=== PATIENT | female | born 1985 | race American Indian/Alaskan Native ===

== ENCOUNTER 2017-12-05 00:22 | Inpatient (IN) | payer OTHER, MEDICAID ==
[2017-12-05] MEDS ORDERED: LACTATED RINGERS 1,000 ML ONE (02:17)
[2017-12-05] MEDS ORDERED: STADOL IV PRN (02:24)
[2017-12-05] MEDS ORDERED: BRETHINE IVP PRN (02:24)
[2017-12-05] MEDS ORDERED: PHENERGAN PO PRN ×2 (02:24→03:52)
[2017-12-05] MEDS ORDERED: MINERAL OIL PO PRN (02:24)
[2017-12-05] MEDS ORDERED: ZOFRAN IV PRN ×2 (02:24→03:52)
[2017-12-05] MEDS ORDERED: XYLOCAINE 2% INFILTRATI ONE (02:24)
[2017-12-05] MEDS ORDERED: ePHEDrine SULFATE IV PRN (02:24)
[2017-12-05] MEDS ORDERED: BRETHINE SUB-Q PRN (02:24)
[2017-12-05] MEDS ORDERED: SUBLIMAZE IV PRN (02:24)
--- NOTE | 2017-12-05 02:33 | History and Physical Report ---
History of Present Illness Date of examination: 12/05/17 Date of admission: 12/05/17 01:41 Chief complaint: Labor History of present illness: Pt is a 31yo BF EDC 12/18/17; EGA 38 1/7 weeks presents to L&D complaining of RUC's q 3-4 mins. She received care at [facility] since 5 weeks and course has been remarkable for chronic hypertension and history of PTD, for which she has been co-managed by [facility]. records are available and GBS is Negative. Past History Past Medical History: hypertension Past Surgical History: no surgical history RENAL MEDICINE PHYSICIAN History: chlamydia, fibroids Family/Genetic History: diabetes, heart disease, hypertension, cancer Social history: no significant social history, single - Obstetrical History Expected Date of Delivery: 12/18/17 Actual Gestation: 38 Week(s) 1 Day(s) : 4 Medications and Allergies Allergies Allergy/AdvReac Type Severity Reaction Status Date / Time No Known Drug Allergies Allergy Unknown Verified 12/05/17 02:44 Review of Systems All systems: negative - Physical Exam Breasts: Positive: deferred Cardiovascular: Regular rate Lungs: Positive: Clear to auscultation Abdomen: Positive: normal appearance Genitourinary (Female): Positive: normal external genitalia Uterus: Positive: enlarged Extremities: Positive: normal - Obstetrical FHR: category 1 Uterine Contraction Monitor Mode: External Cervical Dilatation: 6 Cervical Effacement Percentage: 90 station: -2 Uterine Contraction Pattern: Regular Uterine Tone Measurement Phase: Contraction Uterine Contraction Intensity: Moderate Results Result Diagrams: 12/05/17 02:32 All other labs normal. Assessment and Plan - Patient Problems (1) 38 weeks gestation of Onset Date: 12/05/17 Current Visit: Yes Status: Acute Plan to address problem: A: IUP @ 38 1/7 weeks in labor GBS Negative P: Admit to L&D for expectant vaginal delivery (2) Active labor at term Onset Date: 12/05/17 Current Visit: Yes Status: Acute
[2017-12-05 02:52] LABS: Hematocrit 32.8 % (30.3-42.9); Hemoglobin 10.9 gm/dl (10.1-14.3); Mean Corpuscular HGB Conc 33 % (30-34); Mean Corpuscular Hemoglobin 31 pg (28-32); Mean Corpuscular Volume 93 fl (79-97); Red Blood Count 3.52 M/mm3 (3.65-5.03); Red Cell Distribution Width 13.8 % (13.2-15.2)
[2017-12-05 02:57] LABS: Platelet Count 159 K/mm3 (140-440)
[2017-12-05] MEDS ORDERED: PITOCin/NS 30 UNIT/500ML 30 UNITS/500 ML BAG IV SCH ×2 (03:00)
[2017-12-05] MEDS ORDERED: PITOCin/NS 20 UNIT/1000ML DRIP 20 UNITS/1,000 ML BAG IV SCH ×2 (03:00→04:00)
[2017-12-05] MEDS ORDERED: LACTATED RINGERS 1,000 ML IV SCH (03:00)
[2017-12-05] MEDS ORDERED: METHERGINE IM ONE (03:27)
--- NOTE | 2017-12-05 03:51 | Procedure Note ---
OB Delivery Note - Delivery Date of Delivery: 12/05/17 Surgeon: TITI WALL Estimated blood loss: 100cc - Vaginal Delivery presentation: vertex Delivery position: OA Intrapartum events: precipitous labor- <3hr Delivery induction: none Delivery augmentation: rupture of membranes Delivery monitor: external FHT, external uterine Route of delivery: Delivery placenta: spontaneous Delivery cord: 3 umbilical vessels Episiotomy: none Anesthesia: none Delivery comments: delivered OA and placed on Mom's chest for [id number] bonding and delayed cord clamping and cut by Dad - A at 1 minute: 8 at 5 minutes: 9 Gender: Female (3110gms)
[2017-12-05] MEDS ORDERED: TYLENOL PO PRN (03:52)
[2017-12-05] MEDS ORDERED: DULCOLAX PR PRN (03:52)
[2017-12-05] MEDS ORDERED: LANSINOH TP PRN (03:52)
[2017-12-05] MEDS ORDERED: MILK OF MAGNESIA PO PRN (03:52)
[2017-12-05] MEDS ORDERED: PHENERGAN PR PRN (03:52)
[2017-12-05] MEDS ORDERED: BENADRYL PO PRN (03:52)
[2017-12-05] MEDS ORDERED: TUCKS PAD TP PRN (03:52)
[2017-12-05] MEDS ORDERED: SODIUM CHLORIDE FLUSH SYRINGE 10 ML IV NR (04:00)
[2017-12-05] MEDS: MOTRIN PO SCH ×3 (06:28→23:15)
[2017-12-05] MEDS: PRENATAL VITAMIN PO SCH (10:43)
[2017-12-05] MEDS: FEOSOL PO SCH ×2 (10:43→20:59)
[2017-12-05] MEDS: NORCO 5/325 PO PRN (10:44)
[2017-12-05] MEDS: COLACE PO SCH ×2 (10:49→20:59)
[2017-12-05 16:28] LABS: Hemoglobin 10.6 gm/dl (10.1-14.3)
[2017-12-06] MEDS: MOTRIN PO SCH ×3 (05:17→18:33)
[2017-12-06] MEDS ORDERED: BOOSTRIX IM ONE (06:00)
[2017-12-06] MEDS ORDERED: M-M-R II VACCINE SUB-Q ONE (06:00)
[2017-12-06] MEDS: NORCO 5/325 PO PRN (07:25)
[2017-12-06] MEDS: COLACE PO SCH (10:53)
[2017-12-06] MEDS: FEOSOL PO SCH (10:53)
[2017-12-06] MEDS: PRENATAL VITAMIN PO SCH (10:53)
--- NOTE | 2017-12-06 12:11 | Progress Note ---
Assessment and Plan A: PP Day #1 CHTN Stable P: Follow Routine Orders Continue Amlodipine 2.5mg qd Plans Tubal D/C Home in the AM RTO in 2 weeks Subjective - Subjective Date of service: 12/06/17 Patient reports: appetite normal, voiding normally, pain well controlled, flatus , ambulating normally, other (Denies all s/s of PIH) [place]: doing well Objective - Vital Signs Latest vital signs: Vital Signs Temp Pulse Resp BP BP Pulse Ox 12/06/17 08:42 98.2 F 95 H 18 128/79 98 12/06/17 01:50 98.1 F 70 18 119/84 12/05/17 17:28 20 12/05/17 16:31 98.3 F 84 16 123/80 99 Intake and Output 12/05/17 12/06/17 12/06/17 22:59 06:59 14:59 Intake Total 240 480 240 Balance 240 480 240 Intake: Oral 240 120 Intake, Free Water 480 120 Other: Total, Intake Amount 240 120 # Voids Void 1 1 1 - Exam Breasts: Present: normal Cardiovascular: Present: Regular rate Lungs: Present: Clear to auscultation, Normal air movement Abdomen: Present: normal appearance, soft, normal bowel sounds Uterus: Present: normal, firm, fundal height below umbilicus Extremities: Present: normal
--- NOTE | 2017-12-06 12:16 | Discharge Summary ---
Providers - Providers Date of Admission: 12/05/17 01:41 Date of discharge: 12/07/17 Attending physician: JEFE ADAMS MD Primary care physician: JEFE ADAMS MD Hospitalization Reason for admission: active labor Delivery: Episiotomy: none Laceration: none Other procedures: none complications: none Discharge diagnosis: IUP at term delivered [place] baby: female Condition at discharge: Good Disposition: [id number] TO HOME OR SELFCARE Plan - Provider Discharge Summary Activity: routine, no sex for 6 weeks, no heavy lifting 4 weeks, no strenuous exercise Diet: routine Instructions: routine Additional instructions: [] Smoking cessation referral if applicable(refer to patient education folder for contact #) [] Refer to [facility]'s [facility] Booklet Call your doctor immediately for: * Fever > 100.5 * Heavy vaginal bleeding ( >1 pad per hour) * Severe persistent headache * Shortness of breath * Reddened, hot, painful area to leg or breast * Drainage or odor from incision. * Keep incision clean and dry at all times and follow doctor's instructions regarding bathing/showering - Follow up plan Follow up: JEFE ADAMS MD [Primary Care Provider] - 14 Days
[2017-12-06] MEDS ORDERED: NORVASC PO SCH (13:00)
[2017-12-07] MEDS: MOTRIN PO SCH ×2 (00:15→08:30)
[2017-12-07] MEDS: PRENATAL VITAMIN PO SCH (10:00)
[2017-12-07] MEDS: COLACE PO SCH (10:00)
[2017-12-07] MEDS: FEOSOL PO SCH (10:00)
[2017-12-07 10:50] VITALS: BP 126/87
== END 2017-12-07 18:02 | disposition home or self-care (01) | DRG 775 ==
LOC: TRG 00:22 → LD 01:41 → OB 05:35
PROVIDERS: ADMIT Obstetrics & Gynecology; ATTEND Obstetrics & Gynecology
PROC: 10E0XZZ Delivery of Products of Conception, External Approach (ICD-10-PCS; principal; 2017-12-05)
DX: O62.3 Precipitate labor (principal); O16.4 Unspecified maternal hypertension, complicating childbirth; Z3A.38 38 weeks gestation of pregnancy; Z37.0 Single live birth
CPT/HCPCS: 36415; 85014; 85018; 85027; 86592; 86850; 86900; 86901; A6250; J2210; J2590; J3010; J7120

== ENCOUNTER 2019-04-05 23:51 | Emergency (ER) | payer OTHER, MEDICAID ==
[2019-04-06 00:02] VITALS: BP 166/107
[2019-04-06] MEDS ORDERED: PERCOCET 5/325 PO STA (03:23)
--- NOTE | 2019-04-06 05:09 | Emergency Department Report ---
ED ENT HPI - General Chief complaint: Dental/Oral Stated complaint: TOOTHACHE Time Seen by Provider: 04/06/19 03:08 Source: patient Mode of arrival: Ambulatory Limitations: No Limitations - History of Present Illness MD complaint: tooth pain -: Gradual, week(s) Location: tooth # (32) Severity: moderate Quality: dull Consistency: constant Improves with: none Worsens with: eating, movement Context- Dental: history of dental caries Associated Symptoms: toothache. denies: pain with swallowing, sore throat, hearing loss, discharge from ear, rhinorrhea - Related Data Home Medications Medication Instructions Recorded Confirmed Last Taken Ferrous Sulfate [Iron 325 MG] 325 mg PO DAILY 12/06/17 12/06/17 2 Days Ago ~12/04/17 Vit,Calc76/Iron/Folic 1 each PO DAILY 12/06/17 12/06/17 2 Days Ago [Pnv 29-1 Tablet] ~12/04/17 Previous Rx's Medication Instructions Recorded Last Taken Type Amoxicillin [Amoxicillin TAB] 875 mg PO BID #20 tablet 04/06/19 Unknown Rx Chlorhexidine Mouthwash [Peridex] 15 ml MM BID #1 bottle 04/06/19 Unknown Rx Ketorolac [Toradol] 10 mg PO Q6H PRN #15 tablet 04/06/19 Unknown Rx Lidocaine Viscous 2% 5 ml MM Q3H PRN #120 udc 04/06/19 Unknown Rx Allergies Allergy/AdvReac Type Severity Reaction Status Date / Time No Known Drug Allergies Allergy Unknown Verified 12/05/17 02:44 ED Dental HPI - General Chief complaint: Dental/Oral Stated complaint: TOOTHACHE Time Seen by Provider: 04/06/19 03:08 Source: patient Mode of arrival: Ambulatory Limitations: No Limitations - Related Data Home Medications Medication Instructions Recorded Confirmed Last Taken Ferrous Sulfate [Iron 325 MG] 325 mg PO DAILY 12/06/17 12/06/17 2 Days Ago ~12/04/17 Vit,Calc76/Iron/Folic 1 each PO DAILY 12/06/17 12/06/17 2 Days Ago [Pnv 29-1 Tablet] ~12/04/17 Previous Rx's Medication Instructions Recorded Last Taken Type Amoxicillin [Amoxicillin TAB] 875 mg PO BID #20 tablet 04/06/19 Unknown Rx Chlorhexidine Mouthwash [Peridex] 15 ml MM BID #1 bottle 04/06/19 Unknown Rx Ketorolac [Toradol] 10 mg PO Q6H PRN #15 tablet 04/06/19 Unknown Rx Lidocaine Viscous 2% 5 ml MM Q3H PRN #120 udc 04/06/19 Unknown Rx Allergies Allergy/AdvReac Type Severity Reaction Status Date / Time No Known Drug Allergies Allergy Unknown Verified 12/05/17 02:44 ED Review of Systems ROS: Stated complaint: TOOTHACHE Other details as noted in HPI Comment: All other systems reviewed and negative ED Past Medical Hx - Past Medical History Previous Medical History?: Yes Hx Hypertension: Yes Hx Diabetes: No Hx Deep Vein Thrombosis: No Hx Renal Disease: No Hx Sickle Cell Disease: No Hx Seizures: No Hx Asthma: No Hx HIV: No - Surgical History Past Surgical History?: No - Social History Smoking Status: Never Smoker Substance Use Type: None - Medications Home Medications: Home Medications Medication Instructions Recorded Confirmed Last Taken Type Ferrous Sulfate [Iron 325 MG] 325 mg PO DAILY 12/06/17 12/06/17 2 Days Ago History ~12/04/17 Vit,Calc76/Iron/Folic 1 each PO DAILY 12/06/17 12/06/17 2 Days Ago History [Pnv 29-1 Tablet] ~12/04/17 Amoxicillin [Amoxicillin TAB] 875 mg PO BID #20 tablet 04/06/19 Unknown Rx Chlorhexidine Mouthwash [Peridex] 15 ml MM BID #1 bottle 04/06/19 Unknown Rx Ketorolac [Toradol] 10 mg PO Q6H PRN #15 tablet 04/06/19 Unknown Rx Lidocaine Viscous 2% 5 ml MM Q3H PRN #120 udc 04/06/19 Unknown Rx ED Physical Exam - General Limitations: No Limitations General appearance: alert, in no apparent distress - Head Head exam: Present: atraumatic, normocephalic - Eye Eye exam: Present: normal appearance - ENT ENT exam: Present: mucous membranes moist, other (several dental caries noted. With severe erosion to the right lower molar. Tongue and uvula midline. No posterior pharyngeal swelling.) - Neck Neck exam: Present: normal inspection - Respiratory Respiratory exam: Present: normal lung sounds bilaterally. Absent: respiratory distress - Cardiovascular Cardiovascular Exam: Present: regular rate, normal rhythm. Absent: systolic murmur, diastolic murmur, rubs, gallop - GI/Abdominal GI/Abdominal exam: Present: soft, normal bowel sounds - Extremities Exam Extremities exam: Present: normal inspection - Back Exam Back exam: Present: normal inspection - Neurological Exam Neurological exam: Present: alert, oriented X3 - Psychiatric Psychiatric exam: Present: normal affect, normal mood - Skin Skin exam: Present: warm, dry, intact, normal color. Absent: rash ED Course Vital Signs 04/05/19 04/06/19 23:59 04:17 Temperature 98.0 F Pulse Rate 81 68 Respiratory 16 16 Rate Blood Pressure 166/107 O2 Sat by Pulse 98 100 Oximetry Critical care attestation.: If time is entered above; I have spent that time in minutes in the direct care of this critically ill patient, excluding procedure time. ED Disposition Clinical Impression: Dentalgia Disposition: - TO HOME OR SELFCARE Is pt being admited?: No Does the pt Need Aspirin: No Condition: Stable Instructions: Dental Caries (ED), Acute dental trauma (ED), Toothache (ED) Prescriptions: Amoxicillin [Amoxicillin TAB] 875 mg PO BID #20 tablet Lidocaine Viscous 2% 5 ml MM Q3H PRN #120 udc PRN Reason: Pain, Moderate (4-6) Chlorhexidine Mouthwash [Peridex] 15 ml MM BID #1 bottle Ketorolac [Toradol] 10 mg PO Q6H PRN #15 tablet PRN Reason: Pain Referrals: [facility] [Outside] - 3-5 Days PRIMARY CARE,MD [Primary Care Provider] - 3-5 Days
== END 2019-04-06 04:15 | disposition home or self-care (01) ==
LOC: ED 23:51
DX: K08.89 Other specified disorders of teeth and supporting structures (principal); K02.9 Dental caries, unspecified; I10 Essential (primary) hypertension; Z79.899 Other long term (current) drug therapy